=== PATIENT | female | born 1990 | race African-American/Black ===

== ENCOUNTER 2025-02-02 13:28 | Emergency (ER) | payer BC ==
[~2025-02-02] VITALS: Ht 152.4 cm; Wt 70.3 kg
[2025-02-02 15:05] LABS: CALCIUM, SERUM 9.6 mg/dL (8.5-10.1); CREATININE 0.9 mg/dL (0.6-1.3); SODIUM SERUM 137.0 mmol/L (136-145); UREA NITROGEN, BLOOD 11.0 mg/dL (7-18)
[2025-02-02 15:07] LABS: PLATELET COUNT (AUTO) 638 K/uL (150-450); RED BLOOD CELL COUNT(AUTO) 2.74 MIL/uL (4.0-5.2); RED CELL DISTRIBUTION WIDTH 20.2 % (11.5-15.0); WHITE BLOOD COUNT (AUTO) 16.1 K/uL (4.3-11.0)
[2025-02-02 15:16] LABS: PREGNANCY TEST SERUM QUAN 1.0 mIU/mL (0-6)
[2025-02-02 15:37] LABS: APPEARANCE,URINE TURBID (CLEAR); BLOOD, URINE 3+ Ery/uL (NEGATIVE); LEUKOCYTE ESTERASE ,URINE NEGATIVE (NEGATIVE); NITRITE, URINE NEGATIVE (NEGATIVE); UGLUCOSE NEGATIVE (NEGATIVE)
[2025-02-02 15:48] LABS: LYMPHOCYTES % (MANUAL) 8 % (16-48); MONOCYTES % (MANUAL) 5 % (0-11.0); NEUTROPHILS % (MANUAL) 87 (42-76); PLATELET ESTIMATE INCREASED
[2025-02-02] MEDS ORDERED: IOHEXOL-300 100 ML VIAL IV ONE (15:49)
[2025-02-02] MEDS ORDERED: IV NS 0.9% 250 ML IV ONE (15:50)
[2025-02-02] MEDS: IV NS 0.9% 1,000 ML BAG IV ONE (15:53)
[2025-02-02 15:54] LABS: ADD URINE CULTURE NO
[2025-02-02] MEDS ORDERED: CEFTRIAXONE 1 G VIAL ONE (16:57)
[2025-02-02] MEDS ORDERED: METRONIDAZOLE 500MG/ NS 100ML 100 ML IV ONE (16:57)
[2025-02-02] MEDS ORDERED: DOXYCYCLINE HYCLATE (100 MG) 100 MG TABLET ONE (16:58)
[2025-02-02] MEDS: CEFTRIAXONE 1GM BAG (ER ONLY) 1 GM/50 ML PIGGYBACK IV ONE (17:05)
[2025-02-02] MEDS: DOXYCYCLINE HYCLATE (100 MG) 100 MG TABLET PO ONE (17:06)
[2025-02-02] MEDS: FLAGYL/NS RTU 500 MG/100 ML PIGGYBACK IV ONE (17:31)
[2025-02-02] MEDS ORDERED: METHOCARBAMOL (500MG) 500 MG TABLET ONE (23:20)
[2025-02-02] MEDS: METHOCARBAMOL (500MG) 500 MG TABLET PO ONE (23:28)
[2025-02-03 05:42] VITALS: TEMP 98.2
[2025-02-03 09:00] VITALS: BP 116/76; O2SAT 98
== END 2025-02-03 11:45 ==
LOC: ER 13:30
DX: A18.17 Tuberculous female pelvic inflammatory disease (principal); D25.9 Leiomyoma of uterus, unspecified; D64.9 Anemia, unspecified; R10.2 Pelvic and perineal pain; Z86.018 Personal history of other benign neoplasm; Z60.2 Problems related to living alone
CPT/HCPCS: 99285; 96365; 96361; 96368; 36430; 76856; 74177; 85027 ×2; 80048; 85007; 81001; 36415 ×2; 86850; 84702; 86923 ×2; J0696; J7050; J7040 ×2; A4223; Q9967; P9016